=== PATIENT | female | born 1995 | race Caucasian/White ===

== ENCOUNTER 2016-12-09 15:46 | Emergency (ER) | payer BC, OTHER ==
[~2016-12-09] VITALS: Ht 160 cm; Wt 61.2 kg
--- NOTE | 2016-12-09 16:01 | ED Headache ---
General Stated Complaint: HEADACHE,NAUSEA Source: patient Exam Limitations: no limitations History of Present Illness Time seen by provider: 15:55 Initial Comments This 21-year-old female presents with a one-week history of fever and headache stiff neck and photophobia. The patient was treated with a steroid shot for possible sinusitis at urgent care yesterday. She has not been taking any antibiotics. Patient's past medical history includes no similar episodes in the past. The patient does suffer from paroxysmal ventricular tachycardia. Allergies and Home Medications Allergies Coded Allergies: azithromycin (Verified Allergy, Unknown, 12/09/16) Constitutional: fever, malaise Eyes: Denies Blurred Vision, Photophobia, Other (headache and stiff neck) Ears, Nose, Mouth, Throat: denies ear pain Respiratory: No cough Cardiovascular: No chest pain Gastrointestinal: No abdominal pain, nausea Genitourinary: No dysuria, No frequency Musculoskeletal: No back pain Skin: No change in color, No rash Psychiatric/Neurological: No Symptoms Reported Past Falqxqf-[id number]-Pxabmf Hx Patient Social History Recent Foreign Travel: No Contact w/Someone Who Travel: No Reviewed Nursing Assessment Reviewed/Agree w Nursing PMH: Yes Physical Exam Vital Signs Vital Sign - Last 12Hours 12/09/16 16:06 Temp 99.4 Pulse 87 Resp 18 B/P (MAP) 134/91 Pulse Ox 100 O2 Delivery Room Air Capillary Refill : General Appearance: WD/WN, mild distress HEENT: normal ENT inspection, TMs normal, pharynx normal, other (patient's disc were flat.) Neck: other (nuchal rigidity) Cardiovascular: normal peripheral pulses, regular rate, rhythm Respiratory: lungs clear, no respiratory distress Gastrointestinal: normal bowel sounds, non tender, soft Back: normal inspection Extremities: normal range of motion, non-tender, normal inspection Psychiatric: alert, oriented x 3 Crainal Nerves: normal hearing, normal speech, PERRL Motor/Sensory: no motor deficit, no sensory deficit Skin: normal color, warm/dry Progress/Results/Core Measures Results/Orders Lab Results Laboratory Tests Test 12/09/16 16:10 12/09/16 17:20 Range/Units White Blood Count 9.3 4.3-11.0 10^3/uL Red Blood Count 4.97 4.35-5.85 10^6/uL Hemoglobin 12.0 11.5-16.0 G/DL Hematocrit 38 35-52 % Mean Corpuscular Volume 77 L 80-99 FL Mean Corpuscular Hemoglobin 24 L 25-34 PG Mean Corpuscular Hemoglobin Concent 32 32-36 G/DL Red Cell Distribution Width 14.9 H 10.0-14.5 % Platelet Count 309 130-400 10^3/uL Mean Platelet Volume 10.8 H 7.4-10.4 FL Neutrophils (%) (Auto) 65 42-75 % Lymphocytes (%) (Auto) 24 12-44 % Monocytes (%) (Auto) 9 0-12 % Eosinophils (%) (Auto) 2 0-10 % Basophils (%) (Auto) 1 0-10 % Neutrophils # (Auto) 6.0 1.8-7.8 X 10^3 Lymphocytes # (Auto) 2.2 1.0-4.0 X 10^3 Monocytes # (Auto) 0.9 0.0-1.0 X 10^3 Eosinophils # (Auto) 0.2 0.0-0.3 10^3/uL Basophils # (Auto) 0.1 0.0-0.1 10^3/uL Sodium Level 140 135-145 MMOL/L Potassium Level 3.7 3.6-5.0 MMOL/L Chloride Level 107 98-107 MMOL/L Carbon Dioxide Level 22 21-32 MMOL/L Anion Gap 11 5-14 MMOL/L Blood Urea Nitrogen 11 7-18 MG/DL Creatinine 0.81 0.60-1.30 MG/DL Estimat Glomerular Filtration Rate > 60 BUN/Creatinine Ratio 14 0-20 Glucose Level 102 70-105 MG/DL Lactic Acid Level 0.76 0.50-2.00 MMOL/L Calcium Level 9.5 8.5-10.1 MG/DL Total Bilirubin 0.4 0.1-1.0 MG/DL Aspartate Amino Transf (AST/SGOT) 16 5-34 U/L Alanine Aminotransferase (ALT/SGPT) 11 0-55 U/L Alkaline Phosphatase 72 40-136 U/L Total Protein 7.6 6.4-8.2 GM/DL Albumin 4.2 3.2-4.5 GM/DL CSF Glucose 60 50-80 MG/DL CSF Total Protein 34 15-40 MG/DL My Orders Orders - [id number], PRIETO Drake MD Ns Iv 1000 Ml (Sodium Chloride 0.9%) (12/09/16 16:15) Ceftriaxone Injection (Rocephin Injectio (12/09/16 16:15) Methylprednisolone Sod Succ (Solu-Medrol (12/09/16 16:15) Fentanyl Injection (Sublimaze Injection (12/09/16 16:15) Ct Head Wo (12/09/16 16:06) Cbc With Automated Diff (12/09/16 16:06) Comprehensive Metabolic Panel (12/09/16 16:06) Blood Culture (12/09/16 16:10) Lactic Acid Analyzer (12/09/16 16:10) Spinal Punctue Lumbar Diagnos (12/09/16 17:28) Fentanyl Injection (Sublimaze Injection (12/09/16 17:45) Ibuprofen Tablet (Motrin Tablet) (12/09/16 17:45) Ceftriaxone Injection (Rocephin Injectio (12/09/16 17:32) Ns (Ivpb) (Sodium Chloride 0.9% Ivpb Bag (12/09/16 17:32) Csf Cell Count (12/09/16 17:20) Csf Glucose (12/09/16 17:20) Csf Total Protein (12/09/16 17:20) Csf Culture (12/09/16 17:20) Medications Given in ED Current Medications Medications Dose Ordered Sig/Jaja Route Start Time Stop Time Status Last Admin Dose Admin Ceftriaxone Sodium 2000 mg/ Sodium Chloride 50 ml @ 100 mls/hr ONCE ONCE IV 12/09/16 16:15 12/09/16 16:44 DC 12/09/16 17:43 100 MLS/HR Fentanyl Citrate 50 mcg ONCE ONCE IVP 12/09/16 16:15 12/09/16 16:16 DC 12/09/16 16:25 50 MCG Fentanyl Citrate 50 mcg Q1H PRN IVP 12/09/16 17:45 12/09/16 17:42 50 MCG Ibuprofen 800 mg ONCE ONCE PO 12/09/16 17:45 12/09/16 17:46 DC 12/09/16 17:42 800 MG Methylprednisolone Sodium Succinate 125 mg ONCE ONCE IM 12/09/16 16:15 12/09/16 16:16 DC 12/09/16 16:36 125 MG Sodium Chloride 50 ml @ ud STK-MED ONCE .ROUTE 12/09/16 17:32 12/09/16 17:38 DC 12/09/16 17:46 50 MLS/HR Vital Signs/I&O Vital Sign - Last 12Hours 12/09/16 12/09/16 16:06 17:42 Temp 99.4 99.9 Pulse 87 Resp 18 B/P (MAP) 134/91 Pulse Ox 100 O2 Delivery Room Air Progress Note : Time: 18:02 Progress Note Given the patient's history of fever headache photophobia nuchal rigidity the patient was treated with 125 mg of Solu-Medrol IV and 2 g of Rocephin IV. The patient's CT of the head was unremarkable. Patient's white count was normal. The patient's glucose was 102. The patient's lactic acid was normal. The patient had a spinal tap performed after obtaining permission and discussing the risks and benefits of the procedure with patient and her mother. The fluid was clear on spinal tap. The lab results are pending for protein and glucose and cell count. The patient's presentation is consistent with aseptic meningitis. Providing this is supported by the laboratory results for spinal tap and the patient and mother are comfortable with discharge to home and close follow-up with their caregiver of choice tomorrow. Follow-up prescribed hydrocodone and Zofran for pain and nausea. I invited the patient return in the interim if any problems or questions. Departure Impression Impression: Primary Impression: Aseptic meningitis Disposition: 01 HOME, SELF-CARE Condition: Improved Departure-Patient Inst. Decision time for Depature: 18:06 Referrals: MAGALY LECHUGA DO (PCP) Primary Care Physician Patient Instructions: Viral Meningitis, Adult (DC) Add. Discharge Instructions: Zofran for nausea, Vicodin for pain. Close follow-up with Dr. LECHUGA tomorrow. Rest at home. Return if any problems or questions. PRIETO LANDIN MD Dec 09, 2016 16:01
[2016-12-09] MEDS ORDERED: fentaNYL INJECTION 100 MCG/2 ML AMP IVP ONE (16:15)
[2016-12-09] MEDS ORDERED: methylPREDNISolone 125 MG (Solu-MEDROL) VIAL IM ONE (16:15)
[2016-12-09] MEDS ORDERED: cefTRIAXone INJECTION 2,000 MG in NS (IVPB) 50 ML IV ONE (16:15)
[2016-12-09] MEDS ORDERED: NS IV 1000 ML 1,000 ML IV SCH (16:15)
[2016-12-09 16:28] LABS: BASOPHILS # (AUTO) 0.1 10^3/uL (0.0-0.1); BASOPHILS % (AUTO) 1 % (0-10); EOSINOPHILS # (AUTO) 0.2 10^3/uL (0.0-0.3); EOSINOPHILS % (AUTO) 2 % (0-10); LYMPHOCYTES # (AUTO) 2.2 X 10^3 (1.0-4.0); LYMPHOCYTES % (AUTO) 24 % (12-44); MEAN CORPUSCULAR HEMOGLOBIN 24 PG (25-34); MEAN CORPUSCULAR HGB CONC 32 G/DL (32-36); MEAN CORPUSCULAR VOLUME 77 FL (80-99); MEAN PLATELET VOLUME 10.8 FL (7.4-10.4); MONOCYTES # (AUTO) 0.9 X 10^3 (0.0-1.0); MONOCYTES % (AUTO) 9 % (0-12); NEUTROPHILS % (AUTO) 65 % (42-75); PLATELET COUNT 309 10^3/uL (130-400); RED BLOOD COUNT 4.97 10^6/uL (4.35-5.85); RED CELL DISTRIBUTION WIDTH 14.9 % (10.0-14.5); WHITE BLOOD COUNT 9.3 10^3/uL (4.3-11.0)
--- NOTE | 2016-12-09 16:48 | Diagnostic Imaging Report ---
PROCEDURE: CT head without contrast. TECHNIQUE: Multiple contiguous axial images were obtained through the brain without the use of intravenous contrast. INDICATION: Nausea, vomiting, headache, stiff neck x4 days. COMPARISON: None FINDINGS: There is no midline shift or mass effect. The ventricles and sulci are unremarkable. No evidence for acute intracranial hemorrhage, abnormal extra-axial fluid collections or cerebral edema is present. The basilar cisterns are unremarkable. The visualized paranasal sinuses are with trace mucosal thickening. The mastoid air cells are clear. The bony calvarium is intact. IMPRESSION: Negative appearing noncontrast CT of the head. Dictated by: Dictated on workstation # [id number]
[2016-12-09 17:24] LABS: ALANINE AMINOTRANSFERASE 11 U/L (0-55); ALBUMIN 4.2 GM/DL (3.2-4.5); ANION GAP 11 MMOL/L (5-14); ASPARTATE AMINO TRANSFERASE 16 U/L (5-34); BILIRUBIN,TOTAL 0.4 MG/DL (0.1-1.0); BLOOD UREA NITROGEN 11 MG/DL (7-18); BUN/CREATININE RATIO 14 (0-20); CALCIUM 9.5 MG/DL (8.5-10.1); CARBON DIOXIDE 22 MMOL/L (21-32); CHLORIDE 107 MMOL/L (98-107); CREATININE SERUM 0.81 MG/DL (0.60-1.30); GFR ESTIMATED > 60; GLUCOSE 102 MG/DL (70-105); HEMOLYSIS 0 (-100-29); ICTERUS 0.7 (-100-1.9); LIPEMIA 4 (-100-49); POTASSIUM 3.7 MMOL/L (3.6-5.0); SODIUM 140 MMOL/L (135-145); TOTAL PROTEIN 7.6 GM/DL (6.4-8.2)
[2016-12-09] MEDS ORDERED: NS (IVPB) 50 ML ONE (17:32)
[2016-12-09] MEDS ORDERED: cefTRIAXone 1 GM (ROCEPHIN) VIAL ONE (17:32)
[2016-12-09] MEDS ORDERED: IBUPROFEN 800 MG (MOTRIN) TAB PO ONE (17:45)
[2016-12-09] MEDS ORDERED: fentaNYL INJECTION 100 MCG/2 ML AMP IVP PRN (17:45)
[2016-12-09 18:08] LABS: CSF GLUCOSE 60 MG/DL (50-80); CSF TOTAL PROTEIN 34 MG/DL (15-40)
[2016-12-09] MEDS ORDERED: RX-ONDANSETRON 4 MG ODT (ZOFRAN) PPK #4 PO STA (18:21)
[2016-12-09] MEDS ORDERED: RX-TRAMADOL 50 MG (ULTRAM) TAB PPK#4 PO STA (18:22)
[2016-12-09 18:45] VITALS: BP 119/82
[2016-12-09 19:32] LABS: APPEARANCE,CSF SLT CLDY; COLOR,CSF SL XANTH; WHITE BLOOD CELL,CSF 67 CELLS (0-5)
[2016-12-09 20:13] LABS: LYMPHOCYTES,CSF 84 %
== END 2016-12-09 18:45 | disposition home or self-care (01) ==
LOC: ER 15:50
DX: G03.0 Nonpyogenic meningitis (principal)
CPT/HCPCS: 36415; 62270; 70450; 80053; 82945; 83605; 84157; 84703; 85025; 87040; 87070; 87205; 89051